=== PATIENT | female | born 1990 | race African-American/Black ===

== ENCOUNTER 2019-01-08 06:14 | Observation (INO) | payer MEDICAID ==
[~2019-01-08] VITALS: Ht 175.3 cm; Wt 90.7 kg
[2019-01-08] MEDS ORDERED: MAGNESIUM 4 G PREMIX 100 ML IV SCH (06:30)
[2019-01-08] MEDS ORDERED: LACTATED RINGERS 1,000 ML IV SCH (06:30)
[2019-01-08] MEDS ORDERED: HYDRALAZINE 20MG/ML VIAL IV SCH (06:30)
[2019-01-08] MEDS ORDERED: PNV1TABL50 PO (06:44)
[2019-01-08] MEDS ORDERED: HYDRALAZINE 20MG/ML VIAL IV PRN ×6 (06:45→07:15)
[2019-01-08 06:58] LABS: BASOPHILS % 0.3 % (0.0-2.0); EOSINOPHILS % 0.8 % (0.0-5.0); HEMATOCRIT. 33.1 % (36.0-48.0); HEMOGLOBIN. 11.3 g/dL (12.0-16.0); LYMPHOCYTES % 22.5 % (20.0-50.0); MEAN CORPUSCULAR HEMOGLOBIN 33.3 pg (28.0-32.0); MEAN CORPUSCULAR VOLUME 97.1 fL (81.0-99.0); MEAN PLATELET VOLUME 8.6 fl (7.4-10.4); MONOCYTES % 9.7 % (2.0-8.0); NEUTROPHILS % 66.7 % (40.0-76.0); PLATELET 240 x1000/uL (130-400); RED CELL DISTRIBUTION WIDTH 13.2 % (11.6-14.6)
[2019-01-08 07:14] LABS: D-DIMER 2.06 mg/L FEU (<0.50); INR 0.9; PARTIAL THROMBOPLASTIN TIME 26.9 sec (23.4-31.0); PROTHROMBIN TIME 9.2 sec (9.1-11.1)
[2019-01-08 07:16] VITALS: BP 158/81
[2019-01-08] MEDS ORDERED: MAGNESIUM 20 G PREMIX (L & D) 500 ML IV SCH (07:30)
[2019-01-08 07:41] LABS: CHLORIDE 107 mEq/L (98-107)
[2019-01-08 08:01] LABS: HEPATITIS B SURFACE ANTIGEN NEGATIVE
[2019-01-08 08:03] LABS: CLARITY URINE CLEAR (CLEAR); COLOR URINE YELLOW (YELLOW); KETONES URINE NEGATIVE (NEGATIVE); LEUKOCYTE ESTERASE URINE NEGATIVE (NEGATIVE); NITRITE URINE NEGATIVE (NEGATIVE); OCCULT BLOOD URINE TRACE (NEGATIVE); PH URINE 6.5 (4.5-8.0); PROTEIN URINE NEGATIVE (NEGATIVE); SPECIFIC GRAVITY URINE 1.005 (1.005-1.030); UROBILINOGEN URINE 0.2 E.U./dL (0.2-1.0)
[2019-01-08 08:45] LABS: *AMPHETAMINES SCREEN URINE NEGATIVE (NEGATIVE); *BARBITURATES SCREEN URINE NEGATIVE (NEGATIVE); *BENZODIAZEPINES SCREEN URINE NEGATIVE (NEGATIVE); *COCAINE SCREEN URINE NEGATIVE (NEGATIVE); CANNABINOID URINE SCREEN NEGATIVE (NEGATIVE); METHADONE URINE SCREEN NEGATIVE (NEGATIVE); OPIATES URINE SCREEN NEGATIVE (NEGATIVE); PHENCYCLIDINE URINE SCREEN NEGATIVE (NEGATIVE)
== END 2019-01-08 10:18 | disposition left against medical advice (07) ==
LOC: 8 EST LDRP 06:14
PROVIDERS: ADMIT Specialist; ATTEND Specialist
DX: O13.3 Gestational [pregnancy-induced] hypertension without significant proteinuria, third trimester (principal); O99.013 Anemia complicating pregnancy, third trimester; O99.283 Endocrine, nutritional and metabolic diseases complicating pregnancy, third trimester; E87.6 Hypokalemia; O26.893 Other specified pregnancy related conditions, third trimester; R07.9 Chest pain, unspecified; R06.02 Shortness of breath; Z3A.32 32 weeks gestation of pregnancy
CPT/HCPCS: 36415; 80305; 84550; 85379; 85384; 86592; 86703; 86762; 86850; 86900; 87340; 96360; 96361; 96365; 96366; 99281; G0378; J0360; J3475; J7120; A4315